=== PATIENT | male | born 1975 | race Caucasian/White ===

== ENCOUNTER → 2020-12-15 08:03 | Outpatient (BNVA) | payer OTHER, SELFPAY | PROVIDERS: PCP Internal Medicine; Visit Provider Physician Assistant ==

== ENCOUNTER → 2020-12-19 07:44 | Outpatient (BNVA) | payer OTHER, SELFPAY | PROVIDERS: PCP Internal Medicine; Visit Provider Surgery ==

== ENCOUNTER 2020-12-22 08:43 | Outpatient (REF) | payer OTHER, SELFPAY ==
[2020-12-23 13:21] LABS: H Pylori Breath Test NOT DETECTED (NOT DETECTED)
== END 2020-12-22 08:44 | disposition home or self-care (01) ==
LOC: HO.LNP 08:43
PROVIDERS: Surgery; PCP Internal Medicine; Visit Provider Physician Assistant
DX: E66.01 Morbid (severe) obesity due to excess calories (principal); E78.5 Hyperlipidemia, unspecified; G47.30 Sleep apnea, unspecified; I10 Essential (primary) hypertension; M79.673 Pain in unspecified foot
CPT/HCPCS: 83013

== ENCOUNTER → 2020-12-29 09:59 | Outpatient (BNVA) | payer OTHER, SELFPAY | PROVIDERS: PCP Internal Medicine; Visit Provider Physician Assistant ==

== ENCOUNTER → 2021-01-05 09:22 | Outpatient (BNVA) | payer OTHER, SELFPAY | PROVIDERS: PCP Internal Medicine; Visit Provider Physician Assistant ==

== ENCOUNTER → 2021-01-13 09:21 | Outpatient (BNVA) | payer OTHER, SELFPAY | PROVIDERS: PCP Internal Medicine; Visit Provider Surgery ==

== ENCOUNTER 2021-01-19 08:32 | Outpatient (REF) | payer OTHER, SELFPAY ==
--- NOTE | ~2021-01-19 | XR_ITS ---
EXAMINATION: XR CHEST CLINICAL INFORMATION: Severe obesity due to excess calories COMPARISON: None TECHNIQUE: 2 views of the chest were obtained. FINDINGS: No significant abnormality is noted involving the heart, lungs, mediastinum, bony thorax or soft tissues. XR/XR chest 2V IMPRESSION: Unremarkable chest examination.
--- NOTE | 2021-01-19 10:15 | ECG_ITS ---
Test Reason : MORBID OBESITY Blood Pressure : / mmHG Vent. Rate : 096 BPM Atrial Rate : 096 BPM P-R Int : 142 ms QRS Dur : 078 ms QT Int : 342 ms P-R-T Axes : 047 -11 017 degrees QTc Int : 432 ms Normal sinus rhythm Low voltage QRS Borderline ECG No previous ECGs available Referred By: Tony Carrizales Electronically Signed By:SARAH ROCHE
[2021-01-19 10:58] LABS: MANUAL DIFF FLAG NO
[2021-01-19 11:05] LABS: Basophils Percent Auto 0.3 % (0-2); Eosinophils Absolute Auto 0.1 X10*3/uL (0.0-0.4); Eosinophils Percent Auto 1.6 % (0-4); Hemoglobin 13.1 g/dl (14.0-18.0); Imm Gran Abs Auto 0.03 X10*3/uL (0.00-0.03); Imm Gran Pct Auto 0.4 % (0.0-0.4); Lymphocytes Absolute Auto 1.7 X10*3/uL (1.2-4.9); Mean Corpuscular Hemoglobin 28.2 pg (27.0-33.0); Mean Corpuscular Volume 88.2 fL (80-98); Mean Platelet Volume 11.1 fL (9.4-12.4); Monocytes Absolute Auto 0.6 X10*3/uL (0.1-1.2); Monocytes Percent Auto 8.6 % (2-11); Neutrophils Absolute Auto 4.5 X10*3/uL (2.0-8.3); Neutrophils Percent Auto 64.1 % (45-73); Platelet Count 196 X10*3/uL (160-400); Red Blood Count 4.65 X10*6/uL (4.60-5.80); Red Cell Distribution Width 14.3 % (11.0-16.0)
[2021-01-19 11:10] LABS: Estimated Average Glucose 105 mg/dL; Hemoglobin A1c % 5.3 %
[2021-01-19 11:32] LABS: Alanine Aminotransferase 25 U/L (0-40); Alkaline Phosphatase 72 U/L (39-117); Anion Gap 14 (12-20); Aspartate Amino Transferase 18 U/L (5-37); Blood Urea Nitrogen 33 mg/dL (9-16); C Reactive Protein 0.83 mg/dL (< or = 0.50); Calcium 8.9 mg/dL (8.4-10.2); Carbon Dioxide 22 mmol/L (22-29); Chloride 109 mmol/L (96-108); Cholesterol 102 mg/dL; Estimated Glomerular Filt Rate > 60; Glucose Random 108 mg/dL (60-115); HDL Cholesterol 33 mg/dL; Iron 63 mcg/dL (45-160); LDL Cholesterol Calculated 42 mg/dl; Percent Iron Saturation 22 % (15-50); Potassium 5.3 mmol/L (3.3-5.1); Sodium 140 mmol/L (135-145); Total Iron Binding Capacity 284 mcg/dL (228-428); Total Protein 7.3 g/dL (6.5-8.0); Triglycerides 137 mg/dL; Unsaturated Iron Binding 221 ug/dL
[2021-01-19 11:53] LABS: Ferritin 191 ng/mL (20-250); TSH reflex Free T4 1.69 uIU/mL (0.32-4.0); Vitamin D 25-OH Total 15.7 ng/mL (>30)
[2021-01-19 12:08] LABS: Folate 12.9 ng/mL (> or = 4.0); Vitamin B12 331 pg/mL (200-900)
[2021-01-20 19:32] LABS: PTHI 72 pg/mL (14-64)
[2021-01-21 02:27] LABS: Insulin Level Total 29.6 uIU/mL
[2021-01-23 01:02] LABS: Zinc 73 mcg/dL (60-130)
[2021-01-24 15:27] LABS: Vitamin B1 9 nmol/L (8-30)
[2021-01-24 19:30] LABS: Vitamin A 65 mcg/dL (38-98)
== END 2021-01-19 08:33 | disposition home or self-care (01) ==
LOC: HO.LAB 08:32
PROVIDERS: Absent Provider Surgery; PCP Internal Medicine; Visit Provider Dietitian, Registered
DX: E66.01 Morbid (severe) obesity due to excess calories (principal); Z68.43 Body mass index [BMI] 50.0-59.9, adult; E78.5 Hyperlipidemia, unspecified; G47.30 Sleep apnea, unspecified; I10 Essential (primary) hypertension; M79.673 Pain in unspecified foot; Z71.3 Dietary counseling and surveillance
CPT/HCPCS: 36415; 71046; 80053; 80061; 82306; 82607; 82728; 82746; 83036; 83525; 83540; 83970; 84425; 84443; 84590; 84630; 85025; 86140; 93005; 97802

== ENCOUNTER 2021-01-26 07:34 | Outpatient (REF) | payer OTHER, SELFPAY ==
--- NOTE | ~2021-01-26 | US_ITS ---
EXAMINATION: US COMPLETE ABDOMEN WITH LIVER ELASTOGRAPHY CLINICAL INFORMATION: Morbid obesity COMPARISON: None. TECHNIQUE: Real-time imaging of the abdominal viscera. Noninvasive ultrasound liver fibrosis assessment is performed using Guerrero ElastPQ point quantification shear wave elastography (pSWE) with a C5-2 MHz transducer. Multiple elastography samples are obtained. FINDINGS: PANCREAS: Obscured by overlying bowel gas. ABDOMINAL AORTA: Visualized portions unremarkable INFERIOR VENA CAVA: Visualized portions are normal. LIVER: There is diffusely increased echogenicity present. There is hepatomegaly present with vertical span of 25 cm. No intrahepatic bile duct dilatation is identified. The right lobe measures 25 cm in length. The left lobe measures 14.1 cm in length. Portal flow is hepatopedal Shear wave liver elastography median stiffness is 2.29 m/s (reference: normal median stiffness is 1.3 m/s or less). IQR/median stiffness to assess sampling precision is 0.55 (reference: good quality data set is IQR/median stiffness of 0.15 or less). GALLBLADDER: Normal. The gallbladder is physiologically distended without evidence of stones, sludge, polyps, wall thickening or pericholecystic fluid. COMMON BILE DUCT: Normal in caliber measuring 0.6 cm in diameter. RIGHT KIDNEY: Normal. No hydronephrosis. No renal calculi or focal parenchymal lesions. The kidney measures 12.1 cm in maximum dimension. LEFT KIDNEY: Normal. No hydronephrosis. No renal calculi or focal parenchymal lesions. The kidney measures 12.2 cm in maximum dimension. SPLEEN: Splenomegaly is present. The spleen measures 16.3 cm in maximum dimension. FREE FLUID: None. US/US abdomen comp w elastography IMPRESSION: 1. Hepatosplenomegaly with fatty infiltration of the liver. 2. Liver elastography: Although measurements appear consistent with compensated advanced chronic liver disease, there is statistical variability of the sampling which decreases accuracy. REFERENCE: Society of Radiologists in Ultrasound Liver Stiffness Thresholds (2020): LIVER STIFFNESS THRESHOLDS: *Liver Stiffness equal or less than 1.3 m/s: High probability of being normal. *Liver Stiffness less than 1.7 m/s: In the absence of other known clinical signs, rules out compensated advanced chronic liver disease. *Liver Stiffness 1.7-2.1 m/s: Suggestive of compensated advanced chronic liver disease but need further test for confirmation. *Liver Stiffness over 2.1 m/s: Rules in compensated advanced chronic liver disease. *Liver Stiffness over 2.4 m/s: Suggestive of clinically significant portal hypertension. QUALITY OF DATA SET: *IQR/Median value equal or less than 0.15 implies a quality data set. *IQR/Median value over 0.15 implies a poor quality data set. SIGNIFICANT CHANGE FROM PRIOR EXAM: Significant change if liver stiffness measurement is 10% or greater from prior exam. OTHER CONSIDERATIONS: The stage of liver fibrosis may be overestimated in the setting of acute hepatitis, liver inflammation, elevated liver function tests, hepatic vascular congestion, obstructive cholestasis, non-fasting state, and infiltrative diseases such as amyloidosis and lymphoma. In some patients with NAFLD, the liver stiffness thresholds for compensated advanced chronic liver disease may be lower. In causes other than viral hepatitis and NAFLD, liver stiffness thresholds are not well established.
--- NOTE | ~2021-01-26 | FL_ITS ---
EXAMINATION: XR GI SERIES CLINICAL INFORMATION: Morbid obesity. COMPARISON: None TECHNIQUE: Air-contrast upper GI examination. FINDINGS: Study is limited due to patient's inability to roll on table. Patient swallowed thin and thick barium without difficulty. There is no evidence of nasopharyngeal reflux or tracheal aspiration. There is normal apposition of the vocal cords while saying E. There is normal elevation of the soft palate while saying candy. There is normal distensibility of the esophagus without evidence of stricture or mucosal abnormality. Normal motility is present. There is spontaneous gastroesophageal reflux to the level of the phil which clears rapidly. The stomach demonstrates normal distensibility without abnormal mass or ulceration. There was no delay in gastric emptying. The duodenal bulb and sweep appeared unremarkable. FLUOROSCOPY TIME: 1.5 minutes DOSE AREA PRODUCT: 42.634 Gy-cm2 (stokes-centimeter squared) FL/FL upper GI series IMPRESSION: Gastroesophageal reflux to the level of the phil. No definite mucosal abnormality appreciated.
== END 2021-01-26 07:35 | disposition home or self-care (01) ==
LOC: HO.US 07:34
PROVIDERS: Absent Provider Physician Assistant; PCP Internal Medicine; Visit Provider Surgery
DX: Z01.818 Encounter for other preprocedural examination (principal); E66.01 Morbid (severe) obesity due to excess calories; K21.9 Gastro-esophageal reflux disease without esophagitis; E78.5 Hyperlipidemia, unspecified; G47.30 Sleep apnea, unspecified; I10 Essential (primary) hypertension; M79.673 Pain in unspecified foot; E87.5 Hyperkalemia
CPT/HCPCS: 36415; 74240; 76705; 76981; 84132

== ENCOUNTER → 2021-02-01 07:03 | Outpatient (BNVA) | payer OTHER, SELFPAY | PROVIDERS: PCP Internal Medicine; Visit Provider Surgery ==

== ENCOUNTER → 2021-02-03 10:57 | Outpatient (BNVA) | payer OTHER, SELFPAY | PROVIDERS: PCP Internal Medicine; Visit Provider Physician Assistant ==

== ENCOUNTER → 2021-02-09 12:21 | Outpatient (BNVA) | payer OTHER, SELFPAY | PROVIDERS: PCP Internal Medicine; Visit Provider Physician Assistant ==

== ENCOUNTER → 2021-02-16 09:56 | Outpatient (BNVA) | payer OTHER, SELFPAY | PROVIDERS: PCP Internal Medicine; Visit Provider Physician Assistant ==

== ENCOUNTER → 2021-02-23 07:59 | Outpatient (BNVA) | payer OTHER, SELFPAY | PROVIDERS: PCP Internal Medicine; Visit Provider Physician Assistant Surgical ==

== ENCOUNTER 2021-03-02 09:37 | Outpatient (REF) | payer OTHER, SELFPAY ==
--- NOTE | 2021-03-02 | PFT_ITS ---
INDICATION: Asthma. SPIROMETRY: The FEV1 to FVC of 86% with an FEV1 of 3.43 L, which is 84% predicted, FVC of 4.01 L, which is 77% predicted. No significant response to bronchodilators noted. Maximum voluntary ventilation 68% predicted. LUNG VOLUMES: Total lung capacity 85% predicted with an expiratory reserve volume of 22% predicted secondary to an elevated BMI. DIFFUSION CAPACITY: DLCO 78% predicted. COMPARISONS: None. INTERPRETATION: No definitive obstructive nor restrictive ventilatory defects identified. No significant response to bronchodilators noted. he does have a mild decrease in maximum voluntary ventilation secondary to likely deconditioning. Lung volumes demonstrate a low normal total lung capacity, and decreased expiratory reserve volume secondary to an elevated BMI. There appears to be a mild diffusion impairment, but this corrects to normal when correcting for his body habitus. Clinical correlation warranted. MD LUZ MARIA Calderón/ELIUD / [id number]
== END 2021-03-02 09:38 | disposition home or self-care (01) ==
LOC: HO.RESP 09:37
PROVIDERS: PCP Internal Medicine; Visit Provider Surgery
DX: J45.41 Moderate persistent asthma with (acute) exacerbation (principal)
CPT/HCPCS: 94060; 94727; 94729

== ENCOUNTER → 2021-03-09 11:34 | Outpatient (BNVA) | payer OTHER, SELFPAY | PROVIDERS: PCP Internal Medicine; Visit Provider Physician Assistant Surgical ==

== ENCOUNTER → 2021-03-16 11:54 | Outpatient (BNVA) | payer OTHER, SELFPAY | PROVIDERS: PCP Internal Medicine; Visit Provider Physician Assistant ==

== ENCOUNTER → 2021-03-20 08:03 | Outpatient (BNVA) | payer OTHER, SELFPAY | PROVIDERS: PCP Internal Medicine; Visit Provider Surgery ==

== ENCOUNTER → 2021-03-31 08:19 | Outpatient (BNVA) | payer OTHER, SELFPAY | PROVIDERS: PCP Internal Medicine; Visit Provider Physician Assistant ==

== ENCOUNTER → 2021-04-07 09:28 | Outpatient (BNVA) | payer OTHER, SELFPAY | PROVIDERS: PCP Internal Medicine; Visit Provider Physician Assistant Surgical ==

== ENCOUNTER → 2021-04-13 09:32 | Outpatient (BNVA) | payer OTHER, SELFPAY | PROVIDERS: PCP Internal Medicine; Visit Provider Physician Assistant Surgical ==

== ENCOUNTER → 2021-04-14 11:06 | Outpatient (BNVA) | payer OTHER, SELFPAY | PROVIDERS: PCP Internal Medicine; Visit Provider Surgery ==

== ENCOUNTER → 2021-04-27 08:55 | Outpatient (BNVA) | payer OTHER, SELFPAY | PROVIDERS: PCP Internal Medicine; Visit Provider Physician Assistant Surgical ==

== ENCOUNTER → 2021-05-04 09:09 | Outpatient (BNVA) | payer OTHER, SELFPAY | PROVIDERS: Visit Provider Physician Assistant Surgical ==

== ENCOUNTER → 2021-05-11 12:05 | Outpatient (BNVA) | payer OTHER, SELFPAY | PROVIDERS: Visit Provider Physician Assistant Surgical ==

== ENCOUNTER → 2021-05-17 09:42 | Outpatient (BNVA) | payer OTHER, SELFPAY | PROVIDERS: PCP Internal Medicine; Visit Provider Surgery ==

== ENCOUNTER → 2021-06-02 12:08 | Outpatient (BNVA) | payer OTHER, SELFPAY | PROVIDERS: PCP Internal Medicine; Visit Provider Physician Assistant ==

== ENCOUNTER → 2021-06-21 08:02 | Outpatient (BNVA) | payer OTHER, SELFPAY | PROVIDERS: PCP Internal Medicine; Visit Provider Surgery ==

== ENCOUNTER → 2021-06-26 10:27 | Outpatient (BNVA) | payer OTHER, SELFPAY | PROVIDERS: PCP Internal Medicine; Visit Provider Physician Assistant ==

== ENCOUNTER 2021-06-27 08:35 | Inpatient (IN) | payer OTHER, SELFPAY ==
[2021-06-02 10:08] VITALS: BMI 53.5
[2021-06-02 12:03] LABS: MANUAL DIFF FLAG NO
[2021-06-02 12:28] LABS: Basophils Percent Auto 0.3 % (0-2); Eosinophils Absolute Auto 0.1 X10*3/uL (0.0-0.4); Eosinophils Percent Auto 1.6 % (0-4); Hematocrit 42.1 % (42.0-52.0); Hemoglobin 13.8 g/dl (14.0-18.0); Imm Gran Abs Auto 0.03 X10*3/uL (0.00-0.03); Imm Gran Pct Auto 0.4 % (0.0-0.4); Lymphocytes Absolute Auto 1.5 X10*3/uL (1.2-4.9); Lymphocytes Percent Auto 19.8 % (20-40); Mean Corpuscular HGB Conc 32.8 g/dl (31.0-36.0); Mean Corpuscular Hemoglobin 28.6 pg (27.0-33.0); Mean Corpuscular Volume 87.3 fL (80.0-98.0); Mean Platelet Volume 11.5 fL (9.4-12.4); Monocytes Absolute Auto 0.6 X10*3/uL (0.1-1.2); Monocytes Percent Auto 7.6 % (2-11); Neutrophils Absolute Auto 5.2 x10*3/uL (2.0-8.3); Neutrophils Percent Auto 70.3 % (45-73); Platelet Count 188 X10*3/uL (160-400); Red Blood Count 4.82 X10*6/uL (4.60-5.80); Red Cell Distribution Width 14.1 % (11.0-16.0); White Blood Count 7.4 X10*3/uL (4.8-10.8)
[2021-06-02 12:30] LABS: Alanine Aminotransferase 33 U/L (0-40); Alkaline Phosphatase 90 U/L (39-117); Anion Gap 12 (12-20); Aspartate Amino Transferase 17 U/L (5-37); Bilirubin Total 1.3 mg/dL (0.0-1.0); Blood Urea Nitrogen 22 mg/dL (9-16); C Reactive Protein 0.81 mg/dL (< or = 0.50); Calcium 9.2 mg/dL (8.4-10.2); Carbon Dioxide 23 mmol/L (22-29); Chloride 107 mmol/L (96-108); Cholesterol 111 mg/dL; Creatinine Clr Calc Pharmacy 163.4; Estimated Glomerular Filt Rate > 60; Glucose Random 125 mg/dL (60-115); HDL Cholesterol 30 mg/dL; LDL Cholesterol Calculated 50 mg/dl; Potassium 5.2 mmol/L (3.3-5.1); Sodium 137 mmol/L (135-145); Total Protein 7.2 g/dL (6.5-8.0); Triglycerides 159 mg/dL
[2021-06-02 12:32] LABS: Partial Thromboplastin Time 34.5 SEC (24.1-38.0)
[2021-06-02 12:41] LABS: Estimated Average Glucose 105 mg/dL; Hemoglobin A1c % 5.3 %
[2021-06-02 12:50] LABS: Insulin 14 uU/mL (2-29); TSH reflex Free T4 1.85 uIU/mL (0.32-4.0)
--- NOTE | 2021-06-25 13:53 | MHC.SHP ---
Pre-Procedural Eval Section A Date of Service: 06/25/21 The patient is an INPATIENT: Yes The History & Physical has been completed within 30 days and I have reviewed it.: Yes Section B Chief Complaint: Morbid Severe Obesity Relevant Family History (Specify if Yes): No Relevant Social History: None Present Medications: None Medical History: No relevant PMH History of Previous Operations: No relevant previous surgery Allergies: Allergies Allergy/AdvReac Type Severity Reaction Status Date / Time levofloxacin [From Levaquin] Allergy Mild Rash Verified 06/02/21 10:04 piperacillin [From Zosyn] Allergy Mild Rash Verified 06/02/21 10:04 tazobactam [From Zosyn] Allergy Mild Rash Verified 06/02/21 10:04 Review of Systems Sugical H&P ROS: Negative: Constitution, Cardiovascular, Respiratory, Neurological, Psychiatric, Hem-Onc, Allergic/Immunologic, Gastrointestinal, Genitourinary, Musculoskeletal, Integumentary, Endocrine and Eyes/Ears/Nose/Throat Exam Surgical H&P Exam: Normal: HEENT, Normal: Heart, Normal: Lungs, Normal: Extremities, Normal: Abdomen, Normal: Skin and Normal: Neurological Plan Diagnosis/Plan: Unchanged I have reviewed the history and physical and performed a pertinent physical examination on my patient. No changes have occurred unless specified.
--- NOTE | 2021-06-26 09:18 | HO.ANESPROP2 ---
Documented by User: Radha Del Valle NP 06/26/21 09:19 HPI - Anesthesia Eval Consult details Narrative: 46yo M for Gastric Bypass Laparoscopic, poss LSG,EGD, possible diaphragmatic hernia,possible ventral hernia,possible open, PMFSH Active Problems Active Problems: All Active Problems (Updated 06/02/21 @ 10:12 by Garima Rai RN) Adjustment disorder, unspecified (Acute) Hyperkalemia (Acute) Lower extremity edema (Acute) Back pain (Acute) Foot pain (Acute) Hypertension (Acute) Hyperlipidemia (Acute) Insulin dependent diabetes mellitus (Acute) Sleep apnea with use of nocturnal bilevel positive airway pressure (BPAP) (Acute) Morbid obesity (Acute) Past Medical History Medical History Back pain COVID-19 vaccine series completed Foot pain Hyperlipidemia Hypertension Insulin dependent diabetes mellitus Lower extremity edema Morbid obesity Osteomyelitis Sleep apnea with use of nocturnal bilevel positive airway pressure (BPAP) Family History Family History Mother No problems noted. Father No problems noted. Surgical History Surgical History Hx of toe surgery Social History Social History Are you a primary health care facilities inspector to a significant other at home: No Do you presently have visiting nurse or other home services: No Alcohol intake: current Alcohol intake frequency: does not drink Patient Tobacco Use Status: Never used Tobacco Use of substances other than those prescribed or required for medical reasons: No Are you DNR?: No Advance Directives Information Provided: Yes (informational brochure mailed) Advance Directives on File: No Recently lost weight without trying: No Eating poorly because of decreased appetite: No Nutrition Risks: No Nutritional Risk Poor oral hygiene: No Meds Allergies Allergy/AdvReac Type Severity Reaction Status Date / Time levofloxacin [From Levaquin] Allergy Mild Rash Verified 06/27/21 08:45 piperacillin [From Zosyn] Allergy Mild Rash Verified 06/27/21 08:45 tazobactam [From Zosyn] Allergy Mild Rash Verified 06/27/21 08:45 Home Medications Medication Instructions Recorded Confirmed Last Taken Type atorvastatin 20 mg tablet 20 mg PO BEDTIME 12/19/20 06/02/21 Unknown History cetirizine 10 mg tablet 10 mg PO BEDTIME 12/19/20 06/02/21 Unknown History dulaglutide 1.5 mg/0.5 mL 1.5 mg SUBCUT QWEEK 12/19/20 06/02/21 Unknown History subcutaneous pen injector fluticasone propionate 50 1 spray INTRANASAL BID PRN 12/19/20 06/02/21 Unknown History mcg/actuation nasal spray,suspension gabapentin 800 mg tablet 800 mg PO TID 12/19/20 06/02/21 Unknown History insulin lispro protamine-lispro 1 ml SUBCUT BID 12/19/20 06/02/21 Unknown History 100 unit/mL (75-25) subcutaneous pen metformin 500 mg tablet,extended 1,000 mg PO BEDTIME 12/19/20 06/02/21 Unknown History release 24 hr montelukast 10 mg tablet 10 mg PO BEDTIME 12/19/20 06/02/21 Unknown History lisinopril 20 mg tablet 20 mg PO BEDTIME 06/02/21 06/02/21 Unknown History Exam Exam Date and Time: June 26, 2021 0918 Height,Weight and Vital Signs: Height 5 ft 10 in Weight 169.19 kg Pertinent Lab Results Pertinent Lab Results: Laboratory Tests 06/02/21 06/02/21 06/02/21 11:55 11:55 11:55 WBC 7.4 RBC 4.82 Hgb 13.8 L Hct 42.1 MCV 87.3 MCH 28.6 MCHC 32.8 RDW 14.1 Plt Count 188 MPV 11.5 Immature Gran % (Auto) 0.4 Neut % (Auto) 70.3 Lymph % (Auto) 19.8 L [place] % (Auto) 7.6 Eos % (Auto) 1.6 Baso % (Auto) 0.3 Lymph # (Auto) 1.5 [place] # (Auto) 0.6 Eos # (Auto) 0.1 Baso # (Auto) 0.0 Abs Immat Gran (auto) 0.03 Absolute Neuts (auto) 5.2 Absolute Nucleated RBC 0.000 Nucleated RBC % (auto) 0.0 PT 11.0 INR 1.0 APTT 34.5 Sodium 137 Potassium 5.2 H Chloride 107 Carbon Dioxide 23 Anion Gap 12 BUN 22 H Creatinine 0.90 Estim Creat Clear Calc 163.4 Estimated GFR > 60 Random Glucose 125 H Estimat Average Glucose Hemoglobin A1c % Insulin Level 14 Calcium 9.2 Total Bilirubin 1.3 H AST 17 ALT 33 Alkaline Phosphatase 90 D C-Reactive Protein 0.81 H Total Protein 7.2 Albumin 4.0 Triglycerides 159 Cholesterol 111 LDL Cholesterol, Calc 50 HDL Cholesterol 30 TSH 1.85 Blood Type Antibody Screen 06/02/21 06/02/21 11:55 11:55 WBC RBC Hgb Hct MCV MCH MCHC RDW Plt Count MPV Immature Gran % (Auto) Neut % (Auto) Lymph % (Auto) [place] % (Auto) Eos % (Auto) Baso % (Auto) Lymph # (Auto) [place] # (Auto) Eos # (Auto) Baso # (Auto) Abs Immat Gran (auto) Absolute Neuts (auto) Absolute Nucleated RBC Nucleated RBC % (auto) PT INR APTT Sodium Potassium Chloride Carbon Dioxide Anion Gap BUN Creatinine Estim Creat Clear Calc Estimated GFR Random Glucose Estimat Average Glucose 105 Hemoglobin A1c % 5.3 Insulin Level Calcium Total Bilirubin AST ALT Alkaline Phosphatase C-Reactive Protein Total Protein Albumin Triglycerides Cholesterol LDL Cholesterol, Calc HDL Cholesterol TSH Blood Type B Positive Antibody Screen NEGATIVE Narrative Narrative: EKG 12/2020 Vent. Rate : 096 BPM ? ? Atrial Rate : 096 BPM ?? P-R Int : 142 ms? QRS Dur : 078 ms ? ? QT Int : 342 ms ? ? ? P-R-T Axes : 047 -11 017 degrees ?? QTc Int : 432 ms ? Normal sinus rhythm Low voltage QRS Borderline ECG No previous ECGs available Assessment and Plan Assessment Anesthesia Assessment: Chart Reviewed Documented by User: Magda Presley MD 06/27/21 12:09 [facility] [place] Past Medical History Medical History Back pain COVID-19 vaccine series completed Foot pain Hyperlipidemia Hypertension Insulin dependent diabetes mellitus Lower extremity edema Morbid obesity Osteomyelitis Sleep apnea with use of nocturnal bilevel positive airway pressure (BPAP) Family History Family History Mother No problems noted. Father No problems noted. Family history of problems with anesthesia: No Surgical History Surgical History Hx of toe surgery History of Problems with Anesthesia: No Social History Social History Are you a primary health care facilities inspector to a significant other at home: No Do you presently have visiting nurse or other home services: No Alcohol intake: current Alcohol intake frequency: does not drink Patient Tobacco Use Status: Never used Tobacco Use of substances other than those prescribed or required for medical reasons: No Are you DNR?: No Advance Directives Information Provided: Yes (informational brochure mailed) Advance Directives on File: No Recently lost weight without trying: No Eating poorly because of decreased appetite: No Nutrition Risks: No Nutritional Risk Poor oral hygiene: No Meds Allergies Allergy/AdvReac Type Severity Reaction Status Date / Time levofloxacin [From Levaquin] Allergy Mild Rash Verified 06/27/21 08:45 piperacillin [From Zosyn] Allergy Mild Rash Verified 06/27/21 08:45 tazobactam [From Zosyn] Allergy Mild Rash Verified 06/27/21 08:45 Home Medications Medication Instructions Recorded Confirmed Last Taken Type atorvastatin 20 mg tablet 20 mg PO BEDTIME 12/19/20 06/02/21 Unknown History cetirizine 10 mg tablet 10 mg PO BEDTIME 12/19/20 06/02/21 Unknown History dulaglutide 1.5 mg/0.5 mL 1.5 mg SUBCUT QWEEK 12/19/20 06/02/21 Unknown History subcutaneous pen injector fluticasone propionate 50 1 spray INTRANASAL BID PRN 12/19/20 06/02/21 Unknown History mcg/actuation nasal spray,suspension gabapentin 800 mg tablet 800 mg PO TID 12/19/20 06/02/21 Unknown History insulin lispro protamine-lispro 1 ml SUBCUT BID 12/19/20 06/02/21 Unknown History 100 unit/mL (75-25) subcutaneous pen metformin 500 mg tablet,extended 1,000 mg PO BEDTIME 12/19/20 06/02/21 Unknown History release 24 hr montelukast 10 mg tablet 10 mg PO BEDTIME 12/19/20 06/02/21 Unknown History lisinopril 20 mg tablet 20 mg PO BEDTIME 06/02/21 06/02/21 Unknown History Exam Height,Weight and Vital Signs: Height 5 ft 10 in Weight 169.19 kg Vital Signs Temp Pulse Resp BP Pulse Ox 06/27/21 09:05 97.3 F 94 18 151/82 H 95 Pertinent Lab Results Pertinent Lab Results: Laboratory Tests 06/02/21 06/02/21 06/02/21 11:55 11:55 11:55 WBC 7.4 RBC 4.82 Hgb 13.8 L Hct 42.1 MCV 87.3 MCH 28.6 MCHC 32.8 RDW 14.1 Plt Count 188 MPV 11.5 Immature Gran % (Auto) 0.4 Neut % (Auto) 70.3 Lymph % (Auto) 19.8 L [place] % (Auto) 7.6 Eos % (Auto) 1.6 Baso % (Auto) 0.3 Lymph # (Auto) 1.5 [place] # (Auto) 0.6 Eos # (Auto) 0.1 Baso # (Auto) 0.0 Abs Immat Gran (auto) 0.03 Absolute Neuts (auto) 5.2 Absolute Nucleated RBC 0.000 Nucleated RBC % (auto) 0.0 PT 11.0 INR 1.0 APTT 34.5 Sodium 137 Potassium 5.2 H Chloride 107 Carbon Dioxide 23 Anion Gap 12 BUN 22 H Creatinine 0.90 Estim Creat Clear Calc 163.4 Estimated GFR > 60 Random Glucose 125 H Estimat Average Glucose Hemoglobin A1c % Insulin Level 14 Calcium 9.2 Total Bilirubin 1.3 H AST 17 ALT 33 Alkaline Phosphatase 90 D C-Reactive Protein 0.81 H Total Protein 7.2 Albumin 4.0 Triglycerides 159 Cholesterol 111 LDL Cholesterol, Calc 50 HDL Cholesterol 30 TSH 1.85 Blood Type Antibody Screen 06/02/21 06/02/21 11:55 11:55 WBC RBC Hgb Hct MCV MCH MCHC RDW Plt Count MPV Immature Gran % (Auto) Neut % (Auto) Lymph % (Auto) [place] % (Auto) Eos % (Auto) Baso % (Auto) Lymph # (Auto) [place] # (Auto) Eos # (Auto) Baso # (Auto) Abs Immat Gran (auto) Absolute Neuts (auto) Absolute Nucleated RBC Nucleated RBC % (auto) PT INR APTT Sodium Potassium Chloride Carbon Dioxide Anion Gap BUN Creatinine Estim Creat Clear Calc Estimated GFR Random Glucose Estimat Average Glucose 105 Hemoglobin A1c % 5.3 Insulin Level Calcium Total Bilirubin AST ALT Alkaline Phosphatase C-Reactive Protein Total Protein Albumin Triglycerides Cholesterol LDL Cholesterol, Calc HDL Cholesterol TSH Blood Type B Positive Antibody Screen NEGATIVE Laboratory Results - last 48 hr 06/26/21 06/26/21 06/27/21 10:05 10:15 09:01 Sodium Potassium Chloride Carbon Dioxide Anion Gap BUN Creatinine Estim Creat Clear Calc Estimated GFR POC Glucose 135 H Fasting Glucose Calcium COVID-19 (NELL) Negative COVID-19 Clin Com See Note Blood Type B Positive Antibody Screen NEGATIVE 06/27/21 06/27/21 09:23 09:24 Sodium Cancelled 136 Potassium Cancelled 5.0 Chloride Cancelled 103 Carbon Dioxide Cancelled 25 Anion Gap Cancelled 13 BUN 16 Creatinine 0.89 Estim Creat Clear Calc 165.2 Estimated GFR > 60 POC Glucose Fasting Glucose 139 H Calcium 9.4 COVID-19 (NELL) COVID-19 Clin Com Blood Type Antibody Screen Airway Mallampati Class: IV (Small mouth opening) TM Dist: >3cm Neck ROM: Full (Large short neck. Bearded. Large neck) Heart: RRR. Distant Lungs: CTAB. Distant Assessment and Plan Final Anesthetic Review Family History of Problems with Anesthesia: No History of Problems with Anesthesia: No NPO: Yes ASA Class: III Final Preanesthetic Review: No Changes in Pt Med Stat, Meds/Allgs Chart Reviewed, Consent Obtained/Reviewed and Anes Risks/Benef Reviewed Patient Risk: Intermediate Procedure Risk: Intermediate Assessment/Block/Sedation in SS: Assess/Block/Sedation-SS Anesthetic Plan Anesthetic Plan: GA Disposition: Standard PACU and Inp. Admit - Standard Bed
[2021-06-26 10:39] LABS: COVID-19 Test Negative (Negative)
[2021-06-27] VITALS (17 sets, daily range): BP systolic 144–185; BP diastolic 80–97; PULSE 89–96; RESP 16–20; TEMP 36–37.1; O2SAT 95–97
--- NOTE | ~2021-06-27 | FL_ITS ---
EXAMINATION: XR GI SERIES CLINICAL INFORMATION: Status post day 1 gastric bypass. COMPARISON: Upper GI 01/26/2021. TECHNIQUE: Routine GI exam the 50/50 Gastrografin dilution was performed in upright view. FINDINGS: Following oral administration of the dilute Gastrografin, there is normal propagation of bolus from the oral cavity through the pharynx, esophagus into a small stomach, which immediately empties into the duodenum without any obstruction or extravasation. There is evidence of gastric bypass surgical changes. Delayed imaged 30 minutes later reveals contrast to be within mid jejunal segments. FLUOROSCOPY TIME: 1.2 minutes. DOSE AREA PRODUCT: 54.154 uGy-m2 (microgray-meter squared). FL/FL upper GI series IMPRESSION: Postop day 1 status post gastric bypass reveals normal passage of diluted Gastrografin from the oral cavity, esophagus, GE junction, small stomach and gastroduodenal anastomosis into the jejunum. No obstruction or extravasation of Gastrografin seen.
[2021-06-27 09:15] LABS: Glucose, Whole Blood 135 mg/dL (60-115)
[2021-06-27] MEDS: Lactated Ringers 1,000 ML 100 ML IVCONT (09:39)
[2021-06-27] MEDS: Lactated Ringers 1,000 ML 999 ML IV (09:39)
[2021-06-27 09:50] LABS: Anion Gap 13 (12-20); Blood Urea Nitrogen 16 mg/dL (9-16); Calcium 9.4 mg/dL (8.4-10.2); Carbon Dioxide 25 mmol/L (22-29); Chloride 103 mmol/L (96-108); Creatinine Clr Calc Pharmacy 165.2; Estimated Glomerular Filt Rate > 60; Glucose Fasting 139 mg/dL (60-99); Sodium 136 mmol/L (135-145)
[2021-06-27] MEDS: Clindamycin Phosphate/D5W 600 MG/50 ML PIGGYBACK 100 MG IV ×2 (10:53→18:53)
[2021-06-27 16:54] LABS: Hematocrit 40.2 % (42.0-52.0); Hemoglobin 13.2 g/dl (14.0-18.0)
[2021-06-27] MEDS: Famotidine/PF 20 MG/2 ML VIAL IVPUSH ×2 (16:56→20:26)
[2021-06-27 17:10] LABS: Anion Gap 12 (12-20); Blood Urea Nitrogen 18 mg/dL (9-16); Calcium 8.6 mg/dL (8.4-10.2); Carbon Dioxide 25 mmol/L (22-29); Chloride 103 mmol/L (96-108); Creatinine Clr Calc Pharmacy 108.9; Estimated Glomerular Filt Rate 57; Glucose Random 186 mg/dL (60-115); Potassium 5.4 mmol/L (3.3-5.1); Sodium 135 mmol/L (135-145)
[2021-06-27] MEDS: Lactated Ringers 1,000 ML 125 ML IVCONT (17:10)
[2021-06-27] MEDS: HYDROmorphone HCl 0.5 MG/0.5 ML SYRINGE 0.25 MG IVPUSH ×2 (17:40→18:00)
--- NOTE | 2021-06-27 18:47 | PM.OP ---
Brief Operative Note Date of Service: 06/27/21 Pre-op diagnosis: Refractory morbid obesity and comorbidities (see below_ Post-op diagnosis: same (& congenital abdominal adhesions) Procedure: INITIAL PATIENT BMI ON PRESENTATION AT OUR OFFICE: 63.8 kg/m2 LAST BMI BEFORE SURGERY: 54 kg/m2 COMORBIDITIES: insulin dependent diabetes, sleep apnea on Bipap, hypertension, lower extremity edema, back pain, GERD, liver steatosis, liver fibrosis, hepatomegaly, hyperlipidemia ?The patient presented to the Weight Management Program with significant obesity that was negatively impacting the patient's comorbidities as listed above.? The program is a phased program with a special focus on preoperative medical weight management to promote substantial weight loss and prepare the patients for the second phase of the program: bariatric surgery. The patient participated in an intensive weekly lifestyle ?intervention and exercise program during which the patient ?has lost between the initial office visit and the last preoperative visit 78 lbs, or 17.06%% of initial actual body weight. It was deemed appropriate for the patient to now have bariatric surgery. In light of the current Covid-19 pandemic and the well documented strong association of obesity and increased risk of worse outcomes if infected with Covid-19 (REFERENCES:https://pubmed.ncbi.nlm.nih.gov/18249816/,?https://pubmed.ncbi.nlm.nih.gov/44382864/), any delay in undergoing bariatric surgery may lead to the patient's worsening health condition and increased?risk of more severe Covid-19 disease if infected. In addition a recent?study from [facility] published in [facility] on 05/22/2021 ([email or web address]) found that, among patients with obesity, substantial weight loss achieved with surgery was associated with improved outcomes of COVID-19 infection. The findings suggest that obesity can be a modifiable risk factor for the severity of COVID-19 infection. In addition, the patient met the BMI-criteria for bariatric surgery based on the BMI on initial presentation. The patient should not be penalized for achieving such weight loss because ?it is not sustainable long-term without surgical intervention and it was achieved in preparation for bariatric surgery ?under my direction and based on my published research ([email or web address] and?https://www.soard.org/article/[email or web address])39930-X/pdf) ?that a 10% preoperative weight loss improves long-term weight loss after surgery and reduces perioperative complications.? Insurance carriers such as [facility] have endorsed my recommendations ?and have included in their policies criteria to include a 10% preoperative weight loss requirement. PROCEDURE: Upper endoscopy, laparoscopic extensive lysis of adhesions and laparoscopic Lisa-en-Y gastric bypass with a Lisa limb of 160 cm ? INDICATIONS: This is a 46 year-old male with a BMI of 54 kg/m2 and associated comorbid conditions as described previously. After appropriate workup was performed, the patient was electively scheduled for laparoscopic, possibly open, gastric bypass. The risks and complications of the procedure were discussed with the patient in advance, particularly the possibility of ; pulmonary embolism; anastomotic leak; bleeding; bowel obstruction; cardiac, pulmonary, or renal complications; as well as long-term problems such as insufficient weight loss, vitamin deficiency, anastomotic strictures, or ulcers. The patient understood all the risks, and was in agreement to proceed with surgery. ? DESCRIPTION OF PROCEDURE: After informed consent was obtained from the patient, the patient was given preoperative antibiotics, and was transferred to the operating room. After successful induction of general anesthesia, a Call catheter and pneumatic compressive devices were placed on both lower extremities. An upper endoscopy was performed next. The oropharynx and esophagus appeared to be within normal limits. There was no diaphragmatic hernia present consistent with the findings of the preoperative upper GI. The stomach was entered. Then after all fluid and air were suctioned and the stomach was fully decompressed, the scope was withdrawn and secured in the mid esophagus. ? The patient was then prepped and draped in the usual sterile manner, and abdominal access was established at the right upper quadrant with the Taran technique. A 12 mm blunt port was inserted, and the abdomen was insufflated with CO2 to a pressure of 15 mmHg. Under direct visualization, additional ports were placed, specifically a 5 and a 12 mm Versi-Step port, to the left and right of the umbilicus, two 5 mm ports to the left upper quadrant, and a 5 mm Versi-Step port to the right upper quadrant. Using the EndoClose suture passer device, I placed a #1 Polysorb tie across the falciform ligament in order to retract it up against the abdominal wall and prevent injury of the ligament with our instruments during the procedure. Following that, the patient was placed in a steep reverse Trendelenburg position. An additional 5 mm port was placed to the right flank for the Mediflex retractor that was used to retract the left lobe of the liver. The pars flaccida was opened with the ultrasonic device and the lesser sac was entered. The angle of His was opened with the ultrasonic device the fundus of the stomach from any diaphragmatic and splenic attachments. There were extensive congenital adhesions between the pancreas and posterior gastric wall. Those were lysed completely with the ultrasonic device. We then opened the gastrocolic ligament between the transverse colon and the greater curvature of the stomach with the ultrasonic device to enter the lesser sac and facilitate delivery of the Lisa limb through the lesser sac at a later step of the procedure. There were extensive retrogastric congenital adhesions that had to be lysed to free the stomach as well as to be able to enter the retrogastric space and perform the gastric stapling. The lesser omentum was divided with an AEON SANIYA-45 articulating stokes load. We opened the angle of His with the ultrasonic device, the fundus of the stomach from any diaphragmatic or splenic attachments. After a window was established there, the stomach was divided transversely with an AEON SANIYA-45 articulating purple load. Every effort was made that the gastric pouch had a tubular and not spherical shape by limiting the vertical division of the stomach with the first staple load at the lesser curvature. A second articulating AEON SANIYA-45 orange load was fired next towards the angle of His. The staple line of the gastric remnant was then reinforced with a running 2-0 Surgidac suture using the Endo Stitch device.? The retrogastric space was dissected after the first two staple loads were fired. The retrogastric space was opened in the avascular plane medially to the splenic artery and laterally to the left lesly all the way to the angle of His. The gastric pouch was completed with three additional AEON SANIYA-45 and one 60 articulating orange loads. The remaining staple line of the gastric remnant was also reinforced with a running 2-0 Surgidac suture using the Endo Stitch device.? The staple line of the gastric pouch was reinforced with Hemoclips. The patient was then placed in supine position, and after we retracted the transverse colon and the omentum cephalad, we identified the ligament of Treitz. There were extensive congenital adhesions between the transverse mesocolon and the small bowel mesentery. Those were lysed completely to make sure that the transverse mesocolon can be retracted cephalad and that the small bowel mesentery was mobile and it would be able to be brought up to the gastric pouch. This prolonged the procedure for an additional hour along with the extensive retrogastric congenital adhesions. We counted 50 cm from the ligament of Treitz, and the small bowel and the mesentery were divided with an Endo SANIYA-60 white load. Using the ultrasonic device, we opened the peritoneum at the root of the mesentery further to gain extra mobility. A clip was used to coni the proximal end of the divided bowel, the bilio-pancreatic end, which was run back to the ligament of Treitz to confirm that we had marked the correct side and we had done so. We then developed the mesocolic window slightly to the left and superior to the ligament of Treitz using the ultrasonic device. The apex of the Lisa limb was identified. Following that, we grasped the apex of the Lisa limb with an articulating bowel grasper, and after we made sure there was no twisting of the mesentery, it was delivered in a retrocolic, retrogastric fashion through the mesocolic window which we had previously made. Following that, we noted there was no tension between the gastric pouch and the Lisa limb. Enterotomies were made at the apex of the pouch and the Lisa limb, and the gastro-jejunostomy was made with an Endo SANIYA-45 alvarenga load measured to be 4.5 cm in diameter. The enterotomy was closed using the Endo Stitch device in one layer of running 2-0 Polysorb suture in a Sapna fashion starting from each corner of the enterotomy and tying the two ends together in the center of the enterotomy. The Lisa limb was clamped with a bowel clamp approximately 15 cm from the gastro-jejunostomy, and a leak test was performed by submerging the anastomosis in saline and insufflating air off the scope into the pouch. There was no narrowing of the GE junction.? There was no air leak during the test. There was no significant ischemia of the mucosa of the gastric pouch or Lisa limb. There was no bleeding from the suture or staple lines of the anastomosis, as well as the staple line of the gastric pouch which was clearly seen in its entirety. In addition, the anastomosis was patent, and we easily advanced the scope into the proximal Lisa limb. With the scope pulled back at the esophagus, we reinforced the anastomosis circumferentially with multiple interrupted 2-0 Polysorb sutures in a Lembert type fashion using the Endo Stitch device. At that point, we pulled the endoscope back to the esophagus while we were decompressing the Lisa limb and gastric pouch from any remaining air. At that point, the patient was placed in supine position, and after we reduced the Lisa limb back into the abdomen, we counted 160 cm from the gastro-jejunostomy. An enterotomy was made there with the ultrasonic device. After a similar enterotomy was made at the apex of the bilio-pancreatic limb, the jejuno-jejunostomy was made with an Endo SANIYA-60 white load. The enterotomy was closed with another Endo SANIYA-60 white load after appropriate alignment with four interrupted 2-0 Surgidac sutures. Two anti-obstruction sutures were placed next between the staple line of the bilio-pancreatic limb and the mesentery of the Lisa limb distal from the anastomosis to prevent kinking of the anastomosis. We then closed the small bowel mesenteric defect in a running fashion using a running 2-0 Surgidac suture using the Endo Stitch device. We checked the anastomosis at the end. The jejuno-jejunostomy was patent. The Lisa limb was not narrowed. The staple lines were intact, viable, without evidence of any ischemia, bleeding, or any open areas, and the entire anastomosis was sitting nicely without tension, narrowing, or kinking. We then closed the Fish's defect with one interrupted 2-0 Surgidac suture in a U-type fashion and then the mesocolic defect with four interrupted 2-0 Sofsilk sutures in a U-type fashion.? The Lisa limb was clamped 20 cm inferior to the mesocolic window and another endoscopy was performed. We could easily pass the gastroscope through the gastro-jejunostomy and mesocolic window without any narrowing, kinking, or evidence of bleeding or ischemia. At that point the gastroscope was withdrawn from the patient?s mouth while we were decompressing the bowel and the stomach from any remaining air. We ran back the Lisa limb from the mesocolic window to the jejuno-jejunostomy which appeared to be normal without any twisting or kinking. All blood clots were suctioned. We carefully positioned the transverse colon epiploic appendages to the root of the small bowel mesentery to prevent any adhesions between them and the anastomosis that could lead to an internal hernia. We then placed the patient back in a steep reverse Trendelenburg position. We looked into the lesser sac to see how the Lisa limb was situating and it was situating well. There was no bleeding from the suture lines of the remnant, angle of His, and gastric pouch, as well as from the mesentery of the Lisa limb. At this point we placed a 10 mm RISHI drain underneath the gastro-jejunostomy and we secured the skin level with an #0 Sofsilk suture. The Mediflex retractor was removed, and the undersurface of the liver was inspected and there was no bleeding. The patient was placed in supine position. We closed the fascial defect of the periumbilical 12 mm port site laparoscopically with the EndoClose suture passer device using #1 Polysorb suture. The taran port site was closed with a figure of eight #1 Polysorb suture. Then 100 cc 0.25 % Marcaine and Dexomethasone were used to infiltrate both fascial closures as well as all skin incisions. At this point, the abdomen was deflated, all ports were removed under direct vision, and no bleeding was noted from any of the port sites. The skin incisions were irrigated with saline and were closed with 4-0 absorbable monofilament sutures. Steri-Strips and OpSites were used to cover all incisions. The patient was extubated and was transferred in stable condition to the recovery room for further care. ? I was present and performed all jang parts of the procedure. Mariola Jaffe was the medical receptionist medical assistant. There were no residents to assist with this case. ? Evin Carrizales MD, PhD, FACS ? Surgeon: Tony Carrizales MD Anesthesia: GETA, local and other (TAP block) Was an Legal Transcriptionist used for this Procedure?: Yes Legal Transcriptionist: Stacey Jaffe Estimated blood loss (mL): 10 IV fluids (mL): 3,500 Urine output (mL): 150 Pathology: none sent Condition: stable Disposition: PACU
--- NOTE | 2021-06-27 19:10 | P.PNGS_ITS ---
Subjective Subjective Date of Service: 06/28/21 Interval history: Patient has mild incisional pain, but was able to ambulate and use the incentive spirometer. Physical Exam Verdana 4l Vital Signs: Verdana 4d Verdana 4d Vital Signs: Verdana 4d Verdana 4Bd Last Vital Signs Verdana 4d Lan Support Specialist New 4d Lan Support Specialist New 4d Temp 98.7 F 06/27/21 18:10 Lan Support Specialist New 4d Pulse 93 06/27/21 18:10 Lan Support Specialist New 4d Resp 18 06/27/21 18:10 BP 157/88 H 06/27/21 18:10 Pulse Ox 96 06/27/21 18:10 BMI result Body Mass Index 53.5 GI: Inspection: Yes normal to inspection, Yes incision (clean, dry and intact), Yes obesity and Yes other (drain with serosanguinous fluid) Extrem: Right lower extremity: normal to inspection (no calf tenderness) Left lower extremity: normal to inspection (no calf tenderness) Objective Data Active Medications Enalaprilat (Enalaprilat Dihydrate 1.25 Mg/Ml Vial) 0.625 mg IVPUSH Q6H PRN; Protocol PRN Reason: SBP >160 Famotidine (Famotidine/Pf 20 Mg/2 Ml Vial) 20 mg IVPUSH BID [facility] Last Admin: 06/27/21 16:56 Dose: 20 mg Documented by: COREY Fluticasone Propionate (Fluticasone Propionate Nasal 16 Gm [place]) 1 spray NOSTRIL-B BID PRN PRN Reason: Nasal Congestion Hydromorphone HCl (Hydromorphone Hcl 1 Mg/Ml Syringe) 0.25 mg IVPUSH Q4H PRN; Protocol PRN Reason: Pain, Moderate (Pain Scale 4-6 Lactated Ringer's (Lr) 1,000 mls @ 125 mls/hr IVCONT .Q8H [facility] Last Admin: 06/27/21 17:10 Dose: 125 mls/hr Documented by: WARM Clindamycin Phosphate (Cleocin) 600 mg in 50 mls @ 100 mls/hr IV POSTOP ONE Stop: 06/27/21 19:29 Last Admin: 06/27/21 18:53 Dose: 100 mls/hr Documented by: WARM Acetaminophen (Ofirmev) 1,000 mg in 100 mls @ 16.7 mls/hr IV .Q6H [facility] Last Admin: 06/27/21 18:03 Dose: 16.7 mls/hr Documented by: COREY Insulin Human Lispro (Insulin Lispro 100 Unit/Ml 3 Ml Vial) 0 unit SUBCUT Q4H [facility]; Protocol Metoclopramide HCl (Metoclopramide Hcl 10 Mg/2 Ml Vial) 10 mg IVPUSH Q6H PRN PRN Reason: Nausea Ondansetron HCl (Ondansetron Hcl 4 Mg/2 Ml Vial) 4 mg IVPUSH Q8H [facility] Sodium Chloride (0.9 % Sodium Chloride Flush 3 Ml Syringe) 3 ml IVFLUSH QSHIFT [facility] Labs CBC & Chem 7: 06/28/21 05:50 06/28/21 05:50 Labs: Laboratory Results - last 24 hr 06/27/21 06/27/21 06/27/21 09:01 09:23 09:24 Anion Gap Cancelled 13 Estim Creat Clear Calc 165.2 Estimated GFR > 60 POC Glucose 135 H Random Glucose Fasting Glucose 139 H Calcium 9.4 06/27/21 16:45 Anion Gap 12 Estim Creat Clear Calc 108.9 Estimated GFR 57 POC Glucose Random Glucose 186 H D Fasting Glucose Calcium 8.6 D Procedures Date of Service Date of Service: 06/28/21 Progress Note: A&P Assessment and plan (1) S/P gastric bypass: Status: Acute Assessment and Plan: s/p laparoscopic gastric bypass and lysis of adhesions Doing well Check am labs and UGI. If OK, will d/c Call and start phase 1 bariatric diet? (2) Morbid obesity: Status: Acute (3) Sleep apnea with use of nocturnal bilevel positive airway pressure (BPAP): Status: Acute (4) Insulin dependent diabetes mellitus: Status: Acute (5) Hyperlipidemia: Status: Acute (6) Hypertension: Status: Acute (7) Foot pain: Status: Acute (8) Back pain: Status: Acute (9) Lower extremity edema: Status: Acute (10) Steatosis, liver: Status: Acute (11) Liver fibrosis: Status: Acute (12) Hepatomegaly: Status: Acute (13) Congenital intra-abdominal adhesions: Status: Acute (14) GERD (gastroesophageal reflux disease): Status: Acute Fall Risk Details Current Medications: Current Medications Enalaprilat (Enalaprilat Dihydrate 1.25 Mg/Ml Vial) 0.625 mg IVPUSH Q6H PRN; Protocol PRN Reason: SBP >160 Famotidine (Famotidine/Pf 20 Mg/2 Ml Vial) 20 mg IVPUSH BID [facility] Last Admin: 06/27/21 16:56 Dose: 20 mg Documented by: Fluticasone Propionate (Fluticasone Propionate Nasal 16 Gm [place]) 1 spray NOSTRIL-B BID PRN PRN Reason: Nasal Congestion Hydromorphone HCl (Hydromorphone Hcl 1 Mg/Ml Syringe) 0.25 mg IVPUSH Q4H PRN; Protocol PRN Reason: Pain, Moderate (Pain Scale 4-6 Lactated Ringer's (Lr) 1,000 mls @ 125 mls/hr IVCONT .Q8H [facility] Last Admin: 06/27/21 17:10 Dose: 125 mls/hr Documented by: Clindamycin Phosphate (Cleocin) 600 mg in 50 mls @ 100 mls/hr IV POSTOP ONE Stop: 06/27/21 19:29 Last Admin: 06/27/21 18:53 Dose: 100 mls/hr Documented by: Acetaminophen (Ofirmev) 1,000 mg in 100 mls @ 16.7 mls/hr IV .Q6H [facility] Last Admin: 06/27/21 18:03 Dose: 16.7 mls/hr Documented by: Insulin Human Lispro (Insulin Lispro 100 Unit/Ml 3 Ml Vial) 0 unit SUBCUT Q4H [facility]; Protocol Metoclopramide HCl (Metoclopramide Hcl 10 Mg/2 Ml Vial) 10 mg IVPUSH Q6H PRN PRN Reason: Nausea Ondansetron HCl (Ondansetron Hcl 4 Mg/2 Ml Vial) 4 mg IVPUSH Q8H [facility] Sodium Chloride (0.9 % Sodium Chloride Flush 3 Ml Syringe) 3 ml IVFLUSH QSHIFT [facility] Time Spent With Patient Time: Total time spent is greater than 50% in coordination of care (as documented) at patient's floor/unit and/or counseling patient: Time with patient: less than 15 minutes Quality Stroke Does the patient have a stroke diagnosis?: No VTE Prior VTE?: No VTE Risk Level:: Surgical - moderate VTE Device Contraindication: N/A - Device Ordered VTE Drug Contraindication: Treatment Not Indicated
[2021-06-27 19:43] LABS: Glucose, Whole Blood 174 mg/dL (60-115)
[2021-06-27] MEDS: Enalaprilat Dihydrate 1.25 MG/ML VIAL 0.625 MG IVPUSH (19:47)
[2021-06-27] MEDS: Insulin Lispro 100 UNIT/ML 3 ML VIAL SUBCUT ×2 (19:48→22:26)
[2021-06-27] MEDS: ondansetron HCL 4 MG/2 ML VIAL IVPUSH (19:48)
[2021-06-27] MEDS: 0.9 % Sodium Chloride 1,000 ML 125 ML IVCONT (20:20)
[2021-06-27] MEDS: 0.9 % Sodium Chloride Flush 3 ML SYRINGE IVFLUSH (20:26)
[2021-06-27] MEDS: HYDROmorphone HCl 1 MG/ML SYRINGE 0.25 MG IVPUSH (21:33)
[2021-06-27 22:12] LABS: Glucose, Whole Blood 189 mg/dL (60-115)
[2021-06-27] MEDS: Furosemide 20 MG/2 ML VIAL IVPUSH (23:52)
[2021-06-28 02:06] VITALS: BP 172/86
[2021-06-28 02:09] LABS: Glucose, Whole Blood 173 mg/dL (60-115)
[2021-06-28] MEDS: ondansetron HCL 4 MG/2 ML VIAL IVPUSH ×2 (02:12→09:17)
[2021-06-28] MEDS: Enalaprilat Dihydrate 1.25 MG/ML VIAL 0.625 MG IVPUSH (02:12)
[2021-06-28] MEDS: Insulin Lispro 100 UNIT/ML 3 ML VIAL SUBCUT (02:12)
[2021-06-28 03:18] VITALS: BP 159/81; PULSE 89; RESP 18; TEMP 36.4; O2SAT 98
[2021-06-28] MEDS: 0.9 % Sodium Chloride 1,000 ML 125 ML IVCONT (04:18)
[2021-06-28 06:10] LABS: Glucose, Whole Blood 133 mg/dL (60-115)
[2021-06-28 06:19] LABS: MANUAL DIFF FLAG NO
[2021-06-28 06:26] LABS: Imm Gran Abs Auto 0.04 X10*3/uL (0.00-0.03); Imm Gran Pct Auto 0.4 % (0.0-0.4); Lymphocytes Absolute Auto 0.9 X10*3/uL (1.2-4.9); Lymphocytes Percent Auto 9.6 % (20-40); Mean Corpuscular HGB Conc 32.5 g/dl (31.0-36.0); Mean Corpuscular Volume 89.1 fL (80.0-98.0); Mean Platelet Volume 11.5 fL (9.4-12.4); Monocytes Absolute Auto 0.7 X10*3/uL (0.1-1.2); Monocytes Percent Auto 7.6 % (2-11); Neutrophils Absolute Auto 7.5 x10*3/uL (2.0-8.3); Neutrophils Percent Auto 82.4 % (45-73); Platelet Count 171 X10*3/uL (160-400); Red Blood Count 4.49 X10*6/uL (4.60-5.80); Red Cell Distribution Width 13.8 % (11.0-16.0); White Blood Count 9.2 X10*3/uL (4.8-10.8)
[2021-06-28 06:38] LABS: Anion Gap 15 (12-20); Blood Urea Nitrogen 22 mg/dL (9-16); Calcium 8.7 mg/dL (8.4-10.2); Carbon Dioxide 23 mmol/L (22-29); Chloride 105 mmol/L (96-108); Creatinine Clr Calc Pharmacy 115.8; Estimated Glomerular Filt Rate > 60; Glucose Random 140 mg/dL (60-115); Sodium 138 mmol/L (135-145)
--- NOTE | 2021-06-28 06:59 | HO.POSTANES ---
Post Anesthesia Evaluation Post Anesthesia Evaluation Vital Signs: Vital Signs Temp Pulse Resp BP Pulse Ox 06/28/21 03:18 97.5 F 89 18 159/81 H 98 06/28/21 02:06 172/86 H 06/27/21 23:46 96.8 F 89 17 166/83 H 96 06/27/21 22:31 164/85 H 06/27/21 21:05 172/90 H 06/27/21 20:00 97.3 F 96 18 166/82 H 96 Anesthesia: General Endotracheal-GETA Mental Status: Awake Pain Control: Satisfactory Nausea/Vomiting: None Hydration: Adequate Anesthesia-Related Issues: No Anes. Related Issues
[2021-06-28] MEDS: Famotidine/PF 20 MG/2 ML VIAL IVPUSH (07:15)
[2021-06-28 07:24] VITALS: BP 158/85; PULSE 91; RESP 18; TEMP 37.1; O2SAT 96
[2021-06-28] MEDS: Diatrizoate Meglumine, Sodium 30 ML SOLUTION 60 ML PO (08:28)
--- NOTE | 2021-06-28 08:48 | MHC.CM.PN ---
CM attempted to meet with Patient at bedside but, per RN, he was out of the room for GI Series. CM spoke with Patient's /HCP/Sangita @ [phone]. Patient lives in a house with his , Mywynw-ot-Jft and Eudjzi-gw-Iqm and he is functionally independent and working. Home/no services vs new referral to [facility] is the goal for dc and CM has initiated and will follow for dc planning. PCP is Dr. Chapo An and Patient has received Moderna vax X 3.
[2021-06-28 10:11] LABS: Glucose, Whole Blood 128 mg/dL (60-115)
[2021-06-28 11:55] VITALS: BP 168/83; PULSE 90; RESP 18; TEMP 36.6; O2SAT 96
--- NOTE | 2021-06-28 13:02 | MHC.CM.PN ---
Patient has been medically cleared for dc to home today, no services.
--- NOTE | 2021-06-29 10:02 | P.DS_ITS ---
DS: Providers Provider Date of Service: 06/28/21 Date of admission: 06/27/21 08:35 Primary care physician: Chapo An MD DS: Diagnosis Discharge Diagnosis (1) S/P gastric bypass: Status: Acute (2) Morbid obesity: Status: Acute (3) Sleep apnea with use of nocturnal bilevel positive airway pressure (BPAP): Status: Acute (4) Insulin dependent diabetes mellitus: Status: Acute (5) Hyperlipidemia: Status: Acute (6) Hypertension: Status: Acute (7) Steatosis, liver: Status: Acute (8) Liver fibrosis: Status: Acute (9) Hepatomegaly: Status: Acute (10) Congenital intra-abdominal adhesions: Status: Acute (11) GERD (gastroesophageal reflux disease): Status: Acute DS: Summary Hospital Course Hospital Course: ADMITTING DIAGNOSIS: Refractory morbid obesity with a BMI of X kg/m2 and associated co-morbid conditions including IDDM, HTN, hyperlipidemia DISCHARGE DIAGNOSIS: same, s/p RNYGBP Past surgical history: none PROCEDURE: Njoikynb-[id number] and laparoscopic Lisa-en-Y gastric bypass DISCHARGE SUMMARY: HISTORY OF PRESENT ILLNESS: The patient is a 46 year-old male with a BMI of 61 kg/m2 and associated co- morbidities as described previously. The patient had extensive preoperative work-up, lost 72 lbs preoperatively and was electively scheduled for laparoscopic, possible open gastric bypass. Risks and complications of the surgery were discussed with the patient in advance, particularly the possibility of , pulmonary embolism, anastomotic leak, bleeding, bowel injury, GERD, cardiac, renal or pulmonary complications. The patient understood all the risks and was in agreement with the surgical plan. HOSPITAL COURSE: The patient underwent uneventful laparoscopic Lisa-en-Y gastric bypass on the day of admission. Postoperatively, the patient was transferred to the surgical floor on a monitored bed and hemoglobin during the first 8 hours remained stable at mg/dl. The patient was on IV Acetaminophen and dilaudid for pain control. On postoperative day one, the patient was feeling well without nausea, vomiting, fevers, or tachycardia. The patient had some mild incisional pain. The abdomen was soft. UGI showed no leak or obstruction. The patient was started on 1 ounce of water or ice every half hour. The Call was discontinued. During the first day, the patient did fairly well, having some incisional pain, but able to ambulate adequately and to tolerate liquids well. Since the patient is doing well, we decided that the patient was ready to be discharged. The patient was given instructions to follow-up with me next week and to call my office for any fever over 101, persistent abdominal pain, nausea, vomiting, change in the color of the RISHI fluid, symptoms of DVT such as calf tenderness, or leg swelling, or pulmonary embolism such as chest pain or shortness of breath. The patient was also instructed to drink 40-60 ounces of liquids per day using the 1-ounce cups. The patient was given prescription for Tylenol for pain, Zofran prn for nausea, pantoprazole and carafate. The patient was encouraged to ambulate and use the incentive spirometry. The patient was allowed to shower, but no baths, and encouraged to stay active at home. All of these instructions were given to the patient personally. All questions were answered and the patient understood all instructions. The instructions were given to the patient in print as well. Please send a copy of this report to X Time Spent with Patient Time attestation: Total time spent providing and/or coordinating discharge services: Discharge coordination time: Less than 30 minutes Quality: Stroke Does the patient have a stroke diagnosis?: No Physical Exam Verdana 4l Vital Signs: Verdana 4d Verdana 4d Vital Signs: Verdana 4d Verdana 4Bd Last Vital Signs Verdana 4d [employer] New 4d [employer] New 4d Temp 97.8 F 06/28/21 11:55 [employer] New 4d Pulse 90 06/28/21 11:55 [employer] New 4d Resp 18 06/28/21 11:55 BP 168/83 H 06/28/21 11:55 Pulse Ox 96 06/28/21 11:55 BMI result Body Mass Index 53.5 DS: Data Data Completed and Pending Completed studies during hospitalization [Text1]: Procedures Bypass Stomach to Jejunum, Percutaneous Endoscopic Approach (06/27/21) Release Peritoneum, Percutaneous Endoscopic Approach (06/27/21) Labs on day of discharge: Laboratory Results - last 24 hr 06/28/21 10:07 POC Glucose 128 H Discharge Plan Discharge Anticipated Discharge Date/Time: 06/28/21 14:17 Patient Disposition: Home, Self-Care Discharge Diagnosis: s/p gastric bypass Referrals: Chapo An MD [Primary Care Provider] - 1 Week Discharge Medications: Continued lisinopril 20 mg Tablet 20 mg PO BEDTIME 0RF montelukast 10 mg tablet 10 mg PO BEDTIME 0RF cetirizine 10 mg tablet 10 mg PO BEDTIME 0RF fluticasone propionate 50 mcg/actuation spray,suspension 1 spray intranasal BID PRN (Reason: Nasal Congestion) 0RF Held gabapentin 800 mg tablet 800 mg PO TID 0RF Hold Instructions: Discuss restart with Dr Carrizales insulin lispro protamin-lispro 100 unit/mL (75-25) insulin pen 1 ml subcut BID 0RF Hold Instructions: Discuss dosage with Dr Carrizales Rx Instructions: does not take if glucose reading is less than 150 dulaglutide 1.5 mg/0.5 mL pen injector 1.5 mg subcut QWEEK 0RF Hold Instructions: Discuss with Dr Carrizales metformin 500 mg tablet extended release 24 hr 1,000 mg PO BEDTIME 0RF Hold Instructions: Discuss restart with Dr Carrizales atorvastatin 20 mg tablet 20 mg PO BEDTIME 0RF Hold Instructions: Discuss restart with Dr Carrizales Discharge Orders: Discharge Order (Routine); Ordered 06/28/21 Ordered By: Tony Carrizales Diet: other Activity on Discharge: No heavy lifting Stand Alone Forms: Patient Portal Discharge page Care Plan Goals: weight loss Health Concerns: morbid obestiy Plan of Treatment: No tub baths, sex or returning to work until discussed at first post op appointment. No exercise, alcohol, tobacco or illegal drug use. Continue to use incentive spirometer hourly while awake. Walk in home for 5- 10 minutes every 2 hours during the first week. Continue phase 3 diet until first post op appointment. Follow all instructions in the bariatric handbook and call with any questions. Discharge Instructions 1. Please call your doctor or come back to the emergency room should any new symptoms arise. 2. You will receive a courtesy call from [facility] 24-48 hours after discharge. 3. Activity: abstain from alcohol, practice limited stair climbing, no bending, no driving, no exercise, no illicit substances, no lifting, no sex, no tub bath, no work. 4. Diet: continue stage 1 until told to advance by dr Carrizales 5. Dressing Change/Wound Care: Your incision is covered by surgical glue. If the area is tender, you may apply an ice pack for short intervals (no more than 20 minutes on, followed by at least 20 minutes off). Do not apply heat. Do not use creams, lotions, or topical antibiotics unless instructed to do so by your surgeon. These can cause infection or allergic reaction. 6. Record drain output for all 24 hour periods on drain output sheet. Bring sheet at the next office visit 7. Call your doctor if: - Your temperature exceeds 101.5 F - You experience excessive pain or swelling - You have an unexpected reaction to medication - You have excessive bleeding - You experience continued vomiting/nausea - Your incision begins to separate - Your incision shows signs of infection such as increased redness, swelling, excessive pain, heat, or drainage (light blood or clear fluid is normal) 8. General instructions: No lifting greater than 5 lbs for the next 4 weeks[address] within 24 hours of taking narcotic pain medications. If you do not move your bowels in the next 2 days, please take milk of magnesia over the counter. Please follow the post op diet and do not advance your diet until you are seen in the office in about 2 weeks. Please walk around your home every hour or two to prevent blood clots from forming in your legs. You do not need to wake from sleeping to walk. Please sleep in a bed or couch to prevent kinking at the hips and knees. Please take your incentive spirometer (your lung rehab specialist) home with you and use it for the next few days to prevent pneumonias. You may shower, no hot tubs, baths or swimming pools. Please call the office with any questions or concerns such as increasing abdominal pain, fever, chills, shortness of breath, chest pain, leg pain or swelling, or redness or drainage from your incisions. Please stay on stage 3 diet which includes sugar free clear liquids such as ice pops and jello and broth and crystal light. Avoid all carbonation. Please drink 3 protein shakes with at least 25-30 grams of protein daily or 3 of the Celebrate 4:1 shakes which can be purchased in our office. The Celebrate shakes have all of the bariatric vitamins you need if you consume these shakes. If you are drinking other protein shakes, you will need to purchase the Celebrate multivitamins and calcium that we provide in the office (they will provide all the vitamins you need). Please make sure you are consuming at least 40-60 ounces of water in addition to your 3 protein shakes daily. Do not hesitate to contact the office with any questions at . The patient's medical history has been reviewed and they are considered low risk for post op DVT and therefore DVT prophylaxis is not considered necessary. Travel after surgery was reviewed. The patient has not disclosed any travel plans during the first 30 days after surgery and they have been advised that within the first 30 days after surgery any bus, plane, train or car travel over 2 hours in duration is contraindicated due to the possibility of developing blood clots from immobility. Any travel, needs to include periods of ambulation of 10 minutes in duration every 2 hours. The patient was instructed to discuss any plans for travel during this period with their bariatric surgeon. Assessment: stable, post op gastrtic bypass Discharge Date/Time: 06/28/21 14:40
== END 2021-06-28 14:40 | disposition home or self-care (01) | DRG 621 ==
LOC: HO.SSSA 16:22 → HO.S3 16:40
PROVIDERS: Anesthesiology; Physician Assistant; Admitting Provider Surgery; PCP Internal Medicine; Visit Provider Surgery
PROC: 0D164ZA Bypass Stomach to Jejunum, Percutaneous Endoscopic Approach (ICD-10-PCS; principal; 2021-06-27 10:10)
DX: E66.01 Morbid (severe) obesity due to excess calories (principal); G47.30 Sleep apnea, unspecified; Z20.822 Contact with and (suspected) exposure to COVID-19; E11.9 Type 2 diabetes mellitus without complications; I10 Essential (primary) hypertension; K21.9 Gastro-esophageal reflux disease without esophagitis; K76.0 Fatty (change of) liver, not elsewhere classified; K74.00 Hepatic fibrosis, unspecified; E78.5 Hyperlipidemia, unspecified; R16.0 Hepatomegaly, not elsewhere classified; Z79.4 Long term (current) use of insulin; Z79.51 Long term (current) use of inhaled steroids; Z79.899 Other long term (current) drug therapy; Z68.43 Body mass index [BMI] 50.0-59.9, adult
CPT/HCPCS: 36415; 74240; 80048; 80053; 80061; 82947; 83036; 83525; 84443; 85014; 85018; 85025; 85610; 85730; 86140; 86850; 86900; 86901; 87635; 99024; C1758; J0131; J1100; J1170; J1940; J2250; J2370; J2405; J2550; J3010

== ENCOUNTER → 2021-07-03 07:54 | Outpatient (BNVA) | payer OTHER, SELFPAY | PROVIDERS: PCP Internal Medicine; Visit Provider Surgery ==

== ENCOUNTER → 2021-08-04 08:06 | Outpatient (BNVA) | payer OTHER, SELFPAY | PROVIDERS: PCP Internal Medicine; Visit Provider Surgery ==

== ENCOUNTER → 2021-08-28 08:11 | Outpatient (BNVA) | payer OTHER, SELFPAY | PROVIDERS: PCP Internal Medicine; Visit Provider Physician Assistant | DX: Z13.89 Encounter for screening for other disorder (principal) ==

== ENCOUNTER → 2021-09-18 08:18 | Outpatient (BNVA) | payer OTHER, SELFPAY | PROVIDERS: PCP Internal Medicine; Visit Provider Physician Assistant | DX: Z98.84 Bariatric surgery status (principal); E66.01 Morbid (severe) obesity due to excess calories ==

== ENCOUNTER → 2021-10-20 16:45 | Outpatient (BNVA) | payer OTHER, SELFPAY | PROVIDERS: PCP Internal Medicine; Visit Provider Physician Assistant | DX: E66.01 Morbid (severe) obesity due to excess calories (principal) ==